=== PATIENT | female | born 1975 | race Caucasian/White ===

== ENCOUNTER 2017-08-31 09:46 | Day surgery (SDC) | payer BC ==
[~2017-08-31 09:46] MED LIST: Dexamethasone 4 MG/ML 5 ML MDV ONE; Ketorolac 30 MG/ML SDV ONE; Midazolam 1 MG/ML 2 ML SDV ONE; Ondansetron 4 MG/2 ML SDV ONE; Propofol 200 MG/20 ML SDV ONE; fentaNYL 100 MCG/2 ML SDV ONE
--- NOTE | 2017-08-31 10:23 | PCM.PREANE ---
Preanesthetic Assessment - Anesthesia/Transfusion/Family Hx Anesthesia History: Prior Anesthesia Without Reaction Family History of Anesthesia Reaction: No Transfusion History: No Prior Transfusion(s) Intubation History: Unknown - Review of Systems General: No Symptoms Pulmonary: No Symptoms Cardiovascular: No Symptoms Gastrointestinal: No Symptoms Neurological: No Symptoms Other: Reports: None - Physical Assessment Height: 1.67 m Weight: 85.275 kg ASA Class: 2 Mental Status: Alert & Oriented x3 Airway Class: Mallampati = 2 Dentition: Reports: Normal Dentition Thyro-Mental Finger Breadths: 3 Mouth Opening Finger Breadths: 3 ROM/Head Extension: Full Lungs: Clear to Auscultation, Normal Respiratory Effort Cardiovascular: Regular Rate, Regular Rhythm - Lab Values: Laboratory Last Values WBC 6.04 K/uL (4.0-11.0) 08/30/17 06:24 RBC 4.71 M/uL (4.30-5.90) 08/30/17 06:24 Hgb 13.6 g/dL (12.0-16.0) 08/30/17 06:24 Hct 40.2 % (36.0-46.0) 08/30/17 06:24 MCV 85.4 fL (80.0-98.0) 08/30/17 06:24 MCH 28.9 pg (27.0-32.0) 08/30/17 06:24 MCHC 33.8 g/dL (31.0-37.0) 08/30/17 06:24 RDW Std Deviation 40.8 fl (28.0-62.0) 08/30/17 06:24 RDW Coeff of Purnima 13 % (11.0-15.0) 08/30/17 06:24 Plt Count 223 K/uL (150-400) 08/30/17 06:24 MPV 9.30 fL (7.40-12.00) 08/30/17 06:24 Nucleated RBC % 0.0 /100WBC 08/30/17 06:24 Nucleated RBCs # 0 K/uL 08/30/17 06:24 HCG, Qual NEGATIVE (NEG) 08/30/17 06:24 - Allergies Allergies/Adverse Reactions: Allergies Allergy/AdvReac Type Severity Reaction Status Date / Time lisinopril Allergy Cough Verified 08/26/17 10:44 - Blood Blood Available: No - Anesthesia Plan Pre-Op Medication Ordered: None - Acknowledgements Anesthesia Type Planned: General Anesthesia Pt an Appropriate Candidate for the Planned Anesthesia: Yes Alternatives and Risks of Anesthesia Discussed w Pt/Guardian: Yes Pt/Guardian Understands and Agrees with Anesthesia Plan: Yes PreAnesthesia Questionnaire HEENT History: Reports: Other (See Below) Other HEENT History: top denture, bottom partial Cardiovascular History: Reports: Hypertension Gastrointestinal History: Reports: Other (See Below) Other Gastrointestinal History: occasional heartburn Genitourinary History: Reports: None 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: Musculoskeletal History: Reports: None Endocrine/Metabolic History: Reports: Obesity/BMI 30+ - Past Surgical History Head Surgeries/Procedures: Reports: None Female Surgical History: Reports: Tubal Ligation Musculoskeletal Surgical History: Reports: Carpal Tunnel (right side) - SUBSTANCE USE Smoking Status *Q: Current Every Day Smoker (06/30- ppd) Tobacco Use Within Last Twelve Months: Cigarettes Recreational Drug Use History: No - HOME MEDS Home Medications: Home Meds Cetirizine [ZyrTEC] 10 mg PO DAILY 08/26/17 [History] Fish Oil/Ilfeld-3 Fatty Acids [Fish Oil] 500 mg PO DAILY 08/26/17 [History] Hydrochlorothiazide 25 mg PO DAILY 08/26/17 [History] Lactobacillus Acidophilus [Probiotic] 1 tab PO DAILY 08/26/17 [History] Metoprolol Tartrate 100 mg PO DAILY 08/26/17 [History] - CURRENT (IN HOUSE) MEDS Current Meds: Current Medications Discontinued Medications Dexamethasone (Dexamethasone) Confirm Administered Dose 20 mg .ROUTE .STK-MED ONE Stop: 08/31/17 09:15 Fentanyl (Sublimaze) Confirm Administered Dose 100 mcg .ROUTE .STK-MED ONE Stop: 08/31/17 09:15 Ketorolac Tromethamine (Toradol) Confirm Administered Dose 30 mg .ROUTE .STK- MED ONE Stop: 08/31/17 09:15 Midazolam HCl (Versed 1 Mg/Ml) Confirm Administered Dose 2 mg .ROUTE .STK-MED ONE Stop: 08/31/17 09:15 Ondansetron HCl (Zofran) Confirm Administered Dose 4 mg .ROUTE .STK-MED ONE Stop: 08/31/17 09:15 Propofol (Diprivan 20 Ml) Confirm Administered Dose 200 mg .ROUTE .STK-MED ONE Stop: 08/31/17 09:15
[2017-08-31] MEDS ORDERED: Sodium Chloride 0.9% 10 ML Syringe FLUSH PRN (10:41)
[2017-08-31] MEDS ORDERED: Sodium Chloride 0.9% 2.5 ML Syringe FLUSH PRN (10:41)
[2017-08-31] MEDS ORDERED: fentaNYL 100 MCG/2 ML SDV ONE (11:31)
--- NOTE | 2017-08-31 12:05 | PCM.OPNOTE ---
- General Post-Op/Procedure Note Date of Surgery/Procedure: 08/31/17 Operative Procedure(s): Operative hysteroscopy, dilation and curretage of endometrium, polypectomy x 2, thermal endometrial ablation Findings: polypoid lesions largest left fundal, small right mid uterine segment Pre Op Diagnosis: Menorrhagia Post-Op Diagnosis: Same Anesthesia Technique: General LMA Primary Surgeon: Halima Marquez Fluid Replacement, Intraop: 1,000 EBL in mLs: 20 Complications: None known Condition: Good Free Text/Narrative:: Dictation [id number]
--- NOTE | 2017-08-31 12:36 | PCM.POSTAN ---
POST ANESTHESIA ASSESSMENT - MENTAL STATUS Mental Status: Alert, Oriented - RESPIRATORY Respiratory Status: Respiratory Rate WNL, Airway Patent, O2 Saturation Stable - CARDIOVASCULAR CV Status: Pulse Rate WNL, Blood Pressure Stable - GASTROINTESTINAL GI Status: No Symptoms - PAIN Pain Score: 5 - POST OP HYDRATION Hydration Status: Adequate & Stable - OBSERVATIONS Free Text/Narrative:: no anesthesia problems
--- NOTE | 2017-09-01 13:33 | OR ---
SURGEON: Halima Marquez M.D. DATE OF PROCEDURE: 08/31/2017 PREOPERATIVE DIAGNOSIS: Menorrhagia. POSTOPERATIVE DIAGNOSIS: Menorrhagia. PROCEDURES: 1. Operative hysteroscopy. 2. Dilation with polypectomy x2. 3. Curettage of endometrium with thermal endometrial ablation. ANESTHESIA: General LMA. ESTIMATED BLOOD LOSS: 20 mL. FLUIDS: 1000 mL crystalloid. COMPLICATIONS: None known. FINDINGS: Two polypoid lesions were seen within the uterine cavity, the largest along the left fundal region, the other was in the right mid uterine segment. After polypectomies, we were able to confirm normal appearing uterine cavity, both ostia visualized. DISPOSITION: The patient to PACU, stable. PROCEDURE IN DETAIL: Carolin is a 42-year-old female, who has had ongoing difficulties with menorrhagia. At this time, ultrasound is indicative of a thickened heterogeneous endometrium with increased vascularity suggestive of polypoid lesion. She has had permanent control. She would like to proceed with hysteroscopic evaluation, possible polypectomy, and thermal endometrial ablation. Endometrial biopsy is in mind. Risks of procedure have been discussed. Her proper consent was obtained. The patient was taken to the operating room, where she underwent general LMA, was placed in modified dorsolithotomy position, was prepped and draped in the usual sterile fashion. SCDs lower extremities, bladder was drained. Time-out was performed. A speculum was introduced in the vagina. Anterior lip of cervix was grasped with an Allis clamp. The cervical os was visualized, and using a 3 mm hysteroscope introduced in the uterine cavity using normal saline as distention media, the uterine cavity was able to be visualized. Two polypoid lesions were visualized, therefore opted to switch out to the MyoSure device. The hysteroscope was removed. Gentle dilation to 8 mm was performed. MyoSure device was introduced. Once visualization of pelvis was present, the left fundal polyp was excised, followed by the right mid uterine segment one. Thickened endometrium was also gently curettaged with MyoSure device. The MyoSure device was now removed. Endometrial cavity was once again visualized, photographs taken of the post polypectomy. Hysteroscope was removed. Gentle curettage was performed and specimens to pathology. The Lis endometrial ablation device was now prepped according to manager regional protocol. The uterus had been sounded to 9 cm with a cervical length being approximately 5 cm. The device was introduced into the uterine cavity. At the fundus, was able to open the arms and insufflate the balloon. The device was now prepped according to manager regional protocol, and once testing was performed, a 120 second of ablative process took place. The full 120 seconds were completed. When the ablative process was signal complete, the arms were released, the balloon was desufflated, and the device was removed from the uterine cavity. Hemostasis appeared evident. Sponge, instrument, and needle counts were correct x2. The patient will go to PACU in stable condition and speciment sent to pathology. The fluid deficit at hysteroscopy was 350 mL of saline. ANN / KJ /[id number]
== END 2017-08-31 15:08 | disposition home or self-care (01) ==
LOC: MW.SDS 09:46
PROVIDERS: ATTEND Obstetrics & Gynecology
DX: N84.0 Polyp of corpus uteri (principal); I10 Essential (primary) hypertension; Z88.8 Allergy status to other drugs, medicaments and biological substances; Z79.899 Other long term (current) drug therapy; Z98.51 Tubal ligation status; F17.210 Nicotine dependence, cigarettes, uncomplicated
CPT/HCPCS: 36415; 58563; 84703; 85027; J1100; J1885; J2250; J2405; J3010; 00952; 88305; J2704

== ENCOUNTER 2021-09-03 08:00 | Emergency (ER) | payer OTHER, BC ==
[2021-09-03] MEDS ORDERED: Ibuprofen 600 MG Tab PO ONE (08:16)
== END 2021-09-03 08:33 | disposition home or self-care (01) ==
LOC: MW.ED 08:00
DX: S09.90XA Unspecified injury of head, initial encounter (principal); I10 Essential (primary) hypertension; E66.9 Obesity, unspecified; Z68.31 Body mass index [BMI] 31.0-31.9, adult; Z88.8 Allergy status to other drugs, medicaments and biological substances; W18.09XA Striking against other object with subsequent fall, initial encounter; Y92.000 Kitchen of unspecified non-institutional (private) residence as the place of occurrence of the external cause
CPT/HCPCS: 99283; A9270